=== PATIENT | male | born 1975 ===

== ENCOUNTER 2017-04-04 09:14 | Emergency (ER) | payer SELFPAY ==
[2017-04-04 09:20] VITALS: RESP 18; TEMP 98.1
--- NOTE | 2017-04-04 09:36 | C.PDOC ---
History Of Present Illness 41 y/o M p/w sore throat x 2 days. Denies fever. Feels that breathing is fine now but does note that breathing was difficult at times yesterday. Able to swallow but prefers to spit out saliva. Denies abdominal pain. Time Seen by Provider: 04/04/17 09:21 Chief Complaint (Nursing): ENT Problem Past Medical History Vital Signs: Last Vital Signs Temp 98.1 F 04/04/17 09:17 Pulse 90 04/04/17 09:17 Resp 18 04/04/17 09:17 BP 133/77 04/04/17 09:17 Pulse Ox 99 04/04/17 09:17 - Medical History PMH: HTN Surgical History: Appendectomy Family History: States: No Known Family Hx - Social History Hx Alcohol Use: No Hx Substance Use: No - Immunization History Hx Tetanus Toxoid Vaccination: Yes Hx Influenza Vaccination: Yes Hx Pneumococcal Vaccination: No Review Of Systems Except As Marked, All Systems Reviewed And Found Negative. Constitutional: Negative for: Fever Respiratory: Negative for: Shortness of Breath Physical Exam - Physical Exam Appears: No Acute Distress Skin: Normal Color Head: Normacephalic Eye(s): bilateral: EOMI Oral Mucosa: Moist Lips: Normal Appearing Throat: Erythema, Exudate, Other (Kissing tonsils) Neck: Normal ROM Lymphatic: Adenopathy (Tender bilaterally, cervical) Respiratory: No Accessory Muscle Use Gastrointestinal/Abdominal: Soft, No Tenderness, No Distention Neurological/Psych: Normal Speech, Normal Cognition Gait: Steady ED Course And Treatment O2 Sat by Pulse Oximetry: 99 Disposition - Disposition Disposition: HOME/ ROUTINE Disposition Time: 09:36 Condition: STABLE Prescriptions: Amoxicillin 875 mg PO BID #19 tablet Dexamethasone [Decadron] 10 mg PO ONCE #5 tab Ibuprofen [Motrin] 600 mg PO Q6 #25 tab Instructions: Tonsillitis (ED) - Clinical Impression Clinical Impression: Tonsillitis
[2017-04-04] MEDS ORDERED: Amoxicillin 250 mg/5 ml Susp (100 ml) ONE (09:43)
[2017-04-04 10:06] VITALS: BP 124/75; PULSE 78; O2SAT 98
== END 2017-04-04 10:06 | disposition home or self-care (01) ==
LOC: C.ER 09:14
DX: J03.90 Acute tonsillitis, unspecified (principal)
CPT/HCPCS: 96372; 99283; J1885; J8540

== ENCOUNTER 2017-06-19 15:36 | Emergency (ER) | payer OTHER ==
[2017-06-19] MEDS ORDERED: Penicillin G Benzathine 1.2 Mill Unit/2 ml Syr IM ONE ×2 (16:28→16:58)
--- NOTE | 2017-06-19 16:31 | C.PDOC ---
History Of Present Illness SORE THROAT, SWELLING SINCE YEST. SUBJ FEVER. NO OTHER ASSOC SX. EXAM NARD NONTOXIC HEENT +B/L TONSILAR SWELL UVULA MIDLINE, KISSING. NO DROOLING, STRIDOR. +L SUBMAND NODES MOBILE W LOCAL TEND NECK SUPPLE MDM PT REQUESTING PENICILLIN SHOT. PS CURRENT BP SIM TO PRIOR, NONCOMPLIANT W BP MEDS Time Seen by Provider: 06/19/17 16:08 Chief Complaint (Nursing): ENT Problem History Per: Patient History/Exam Limitations: no limitations Onset/Duration Of Symptoms: Days (1) Sick Contacts (Context): None Past Medical History Reviewed: Historical Data, Nursing Documentation, Vital Signs Vital Signs: Last Vital Signs Temp 97.9 F 06/19/17 17:03 Pulse 75 06/19/17 17:03 Resp 18 06/19/17 17:03 BP 170/100 H 06/19/17 17:03 Pulse Ox 98 06/19/17 17:03 - Medical History PMH: HTN Surgical History: Appendectomy Family History: States: No Known Family Hx - Social History Hx Alcohol Use: No Hx Substance Use: Yes - Immunization History Hx Tetanus Toxoid Vaccination: Yes Hx Influenza Vaccination: Yes Hx Pneumococcal Vaccination: No Review Of Systems Except As Marked, All Systems Reviewed And Found Negative. Constitutional: Positive for: Fever (Subjective) ENT: Positive for: Throat Pain (Sore throat), Throat Swelling Cardiovascular: Negative for: Chest Pain Respiratory: Negative for: Cough, Shortness of Breath Gastrointestinal: Negative for: Nausea, Vomiting Physical Exam - Physical Exam Appears: Non-toxic, No Acute Distress Skin: Warm, Dry Head: Atraumatic, Normacephalic Throat: No Drooling, Other ((+) Bilateral tonsilar swelling. Uvula midline, kissing. ) Neck: Normal, Normal ROM, Supple Lymphatic: Other ((+) Left submandibular nodes, mobile with local tenderness) Respiratory: Normal Breath Sounds, No Rales, No Rhonchi, No Stridor, No Wheezing Extremity: Normal ROM, No Swelling Neurological/Psych: Oriented x3, Normal Speech, Normal Motor ED Course And Treatment O2 Sat by Pulse Oximetry: 99 (RA) Pulse Ox Interpretation: Normal Medical Decision Making Medical Decision Making: PLAN: * Decadron IM * Toradol IM * Bicillin IM NOTE: Patient is requesting penicillin shot. Disposition Counseled Patient/Family Regarding: Diagnosis, Need For Followup - Disposition Referrals: YOUR,PMD [Other] Disposition: HOME/ ROUTINE Disposition Time: 16:30 Condition: IMPROVED Prescriptions: Ibuprofen [Motrin] 600 mg PO Q6 #30 tab Instructions: Pharyngitis (ED) Forms: [facility] (Amharic), Work Excuse - Clinical Impression Clinical Impression: Tonsillitis - Scribe Statement The provider has reviewed the documentation as recorded by the Summer Floyd Provider Attestation: All medical record entries made by the Summer were at my direction and personally dictated by me. I have reviewed the chart and agree that the record accurately reflects my personal performance of the history, physical exam, medical decision making, and the department course for this patient. I have also personally directed, reviewed, and agree with the discharge instructions and disposition.
[2017-06-19] MEDS ORDERED: Dexamethasone 4 mg/1 ml ONE (16:52)
[2017-06-19] MEDS ORDERED: Dexamethasone 4 mg/1 ml IM STA (17:01)
[2017-06-19 17:05] VITALS: BP 170/100; PULSE 75; RESP 18; TEMP 97.9
[2017-06-19 17:06] VITALS: O2SAT 99
== END 2017-06-19 17:07 | disposition home or self-care (01) ==
LOC: C.ER 15:36
DX: J03.90 Acute tonsillitis, unspecified (principal); I10 Essential (primary) hypertension
CPT/HCPCS: 96372; 99283; J0561; J1100; J1885

== ENCOUNTER 2017-08-09 09:40 | Observation (INO) | payer MEDICAID, OTHER ==
--- NOTE | 2017-08-09 09:43 | C.PDOC ---
History Of Present Illness LIMITED DUE TO CLIN COND 41-YEAR-OLD MALE, PRESENTS TO THE EMERGENCY DEPARTMENT WITH COMPLAINTS OF RECUR B/L TONSIL SWELLING, DIFFICULTY SWALLOWING SINCE LAST NIGHT. SEEN 03/2017 AND FOR SAME, S/P DEX AND BICILLIN. DENIES TONGUE, LIP SWELLING, SOB/WHEEZE OR OTHER SWELLING, RASH. NO FEVER. PREV DX HTN, NONCOMPLIANT W MEDS X 4 MONTHS DUE TO NO INSURANCE. ROS LIMITED EXAM MOD DIST NONTOXIC HEENT +MOD SEVERE B/L TONSILAR SWELL W SCANT EXUDATE, NONKISSING. UVULA MIDLINE. NO TONGUE OR LIP EDEMA; NO DROOLING/STRIDOR NECK SUPPLE +B/L SUBMAND NODES MILD TEND LUNGS CTA B/L NO W/R/R NO EDEMA NO HIVES, WARM DRY REMAINDER NEG Time Seen by Provider: 08/09/17 09:42 Chief Complaint (Nursing): ENT Problem Past Medical History Reviewed: Historical Data, Nursing Documentation, Vital Signs Vital Signs: Last Vital Signs Temp 98.6 F 08/09/17 09:43 Pulse 70 08/09/17 12:00 Resp 16 08/09/17 12:00 BP 170/116 H 08/09/17 12:00 Pulse Ox 98 08/09/17 12:00 - Medical History PMH: HTN Surgical History: Appendectomy Family History: States: No Known Family Hx - Social History Hx Alcohol Use: No Hx Substance Use: Yes - Immunization History Hx Tetanus Toxoid Vaccination: Yes Hx Influenza Vaccination: Yes Hx Pneumococcal Vaccination: No Review Of Systems Review Of Systems: ROS cannot be obtained secondary to pt's inabilty to answer questions. ENT: Positive for: Other (Tonsillar swelling and diff swallowing) Physical Exam - Physical Exam Appears: Non-toxic, No Acute Distress Skin: Normal Color, Warm, Dry, No Rash Head: Normacephalic Oral Mucosa: Other Throat: Other (+MOD SEVERE B/L TONSILAR SWELL W SCANT EXUDATE, NONKISSING. UVULA MIDLINE. NO TONGUE OR LIP EDEMA; NO DROOLING/STRIDOR) Neck: Normal ROM, Trachea Midline, Supple, Other (+B/L SUBMAND NODES MILD TEND) Chest: Symmetrical Cardiovascular: Rhythm Regular, No Murmur Respiratory: Normal Breath Sounds, No Accessory Muscle Use, No Rales, No Rhonchi , No Wheezing Extremity: Normal ROM, No Pedal Edema, No Deformity, No Swelling Neurological/Psych: Oriented x3, Normal Speech ED Course And Treatment - Laboratory Results Result Diagrams: 08/09/17 10:04 08/09/17 10:04 Progress - Re-Evaluation Re-evaluation Note: 08/09/17 11:43 ACTIVE SPITTING, NARD VSS. CT REPORT REVIEWED. PT CO PERSIST PAIN BUT IMPROVED FROM INITIAL. EXAM PERSIST TONSILAR SWELLING NO STRIDOR ACTIVE DROOLING. 08/09/17 12:03 D/W DR [facility]: RECOMMENDS ZOSYN, MONOSPOT, DEXAMETHASONE 10 MG Q8 X 2 DOSES 1ST DOSE IN 12 HOURS, ADMIT TO MEDICINE 08/09/17 12:17 DR EATON AWARE OF ER FINDINGS WILL ADMIT - Data Reviewed Data Reviewed: Lab, Diagnostic imaging, Old records - Critical Care Citical Care: Excluding Proc Time Critical Care Time: 120 minutes - Continuity of Care Discussed patient case with:: Covering for PMD Discussed pt. case with it consultant/specialty: Otolaryngology Disposition Counseled Patient/Family Regarding: Studies Performed, Diagnosis - Disposition Disposition: HOSPITALIZED Disposition Time: 12:18 Condition: STABLE Forms: [employer] (Romanian) - POA Present On Arrival: None - Clinical Impression Clinical Impression: Tonsillitis, Difficulty swallowing - Scribe Statement The provider has reviewed the documentation as recorded by the Scribe (Cynthia Hoang) All medical record entries made by the Scribe were at my direction and personally dictated by me. I have reviewed the chart and agree that the record accurately reflects my personal performance of the history, physical exam, medical decision making, and the department course for this patient. I have also personally directed, reviewed, and agree with the discharge instructions and disposition. Decision To Admit - Pt Status Changed To: Hospital Disposition Of: Observation - . Bed Request Type: Regular Admitting Physician: Gertrude Eaton Patient Diagnosis: Tonsillitis, Difficulty swallowing
[2017-08-09] MEDS ORDERED: Sodium Chloride 0.9% 1,000 ML IV ONE (09:44)
[2017-08-09] MEDS ORDERED: MethylPREDNISolone 40 mg Vial IVP STA (09:47)
[2017-08-09] MEDS ORDERED: MethylPREDNISolone 40 mg Vial ONE (09:57)
[2017-08-09 10:12] LABS: BASO % 0.4 % (0.0-2.0); EOS # 0.1 K/uL (0.0-0.7); EOS % 1.2 % (0.0-4.0); HEMOGLOBIN 13.3 g/dL (12.0-18.0); LYMPH # 2.7 K/uL (1.0-4.3); LYMPH % 22.4 % (20.0-40.0); MEAN CELL VOLUME 76.5 fL (80.0-94.0); MEAN CORPUSCULAR HEMOGLOBIN 25.5 pg (27.0-31.0); MEAN CORPUSCULAR HGB CONC 33.4 g/dL (33.0-37.0); MEAN PLATELET VOLUME 8.9 fL (7.2-11.7); MONO # 1.3 K/uL (0.0-0.8); MONO % 10.6 % (0.0-10.0); NEUT % 65.4 % (50.0-75.0); RBC 5.22 Mil/uL (4.40-5.90); RED CELL DISTRIBUTION WIDTH 13.5 % (11.5-14.5); WHITE BLOOD COUNT 12.2 K/uL (4.8-10.8)
[2017-08-09 10:27] LABS: CALCIUM 9.4 mg/dl (8.6-10.4); GFR AFRICAN-AMERICAN > 60; GFR NON-AFRICAN AMERICAN > 60
[2017-08-09 10:34] LABS: BLOOD UREA NITROGEN 12 mg/dL (9-20)
[2017-08-09] MEDS ORDERED: Iodixanol 320 MG/ML 100 ML BOTTLE IV ONE (10:41)
--- NOTE | 2017-08-09 11:36 | CT ---
PROCEDURE: CT NECK WITH CONTRAST HISTORY: TONSILAR SWELLING R/O ABSCESS COMPARISON: None TECHNIQUE: CT of the neck with intravenous contrast. Coronal and sagittal reformats generated. Intravenous contrast dose: 100 mL Visipaque 320 Radiation dose: DLP 455.11 mGy-cm This CT exam was performed using one or more of the following dose reduction techniques: Automated exposure control, adjustment of the mA and/or kV according to patient size, and/or use of iterative reconstruction technique. FINDINGS: NASOPHARYNX: Mild thickening at the posterior nasopharynx is noted without evidence of discrete mass. SUPRAHYOID NECK: There is moderate enlargement of the palatine tonsil without evidence of abscess formation which resulting in [id number] narrowing of the upper airway. Otherwise unremarkable oropharynx, oral cavity, parapharyngeal space and retropharyngeal space. INFRAHYOID NECK: Unremarkable larynx, hypopharynx, and supraglottic space. Vocal cords intact. MASS: None. GLANDS: Parotid and submandibular glands unremarkable. Mild diffuse enlargement of the thyroid gland is noted. LYMPH NODES: Diffuse mild enlargement of the lymph nodes at the mid to upper neck noted. CERVICAL SPINE: No fracture or focal lesion. VASCULAR STRUCTURES: Unremarkable. OTHER FINDINGS: None. IMPRESSION: Moderate enlargement of the palatine tonsils without evidence of abscess formation. Mild enlargement of the mid and upper neck lymph nodes. Mild to moderate diffuse enlargement of the thyroid gland. Correlate clinically for hyperthyroidism.
[2017-08-09] MEDS ORDERED: Piperacillin/Tazobact 3.375 gm 100 ML IV STA (12:20)
[2017-08-09] MEDS ORDERED: Piperacill/Tazo 3.375gm in Dex 3.375 GM/50 ML BAG IVPB STA (12:35)
[2017-08-09] MEDS ORDERED: Sodium Chloride 0.9% 1,000 ML IV SCH (13:15)
--- NOTE | 2017-08-09 13:32 | CP.PCM.HP ---
<DamiánBarbara - Last Filed: 08/09/17 13:11> History of Present Illness - History of Present Illness History of Present Illness: Patient is a 41 year old male with PMH of hyperthyroidism and HTN who presents to the ED with swollen tonsils, sore throat, and dysphagia since last night. Patient has been here in 03/2017 and 05/2017 with the same presentation. Patient said he noticed white tonsillar exudates which he tried to scrape off with a toothbrush last night which caused bleeding. Patient denies taking any medications for this since it started. He admits to associated submandibular lymphadenopathy. He denies fever, chills, headache, dizziness, changes in vision /hearing, nasal congestion, sinus pain/pressure, cough, chest pain, SOB, wheezing, stridor, abdominal pain, N&V, diarrhea, constipation, dysuria, calf pain, and lower extremity swelling. Denies sick contacts and recent travel, although patient just moved here 3-4 months ago from [place]. PMD: none (new to [facility]) PMH: hyperthyroidism, HTN Meds: Methimazole 10 mg QD (noncompliant) Allergies: NKDA PSH: appendectomy FH: denies SH: smokes marjuana (1 blunt daily), denies other drugs/tobacco/alcohol Present on Admission - Present on Admission Any Indicators Present on Admission: No Review of Systems - Review of Systems All systems: reviewed and no additional remarkable complaints except (as per HPI ) Past Patient History - Past Social History Smoking Status: Never Smoked - CARDIAC Hx Hypertension: Yes - PSYCHIATRIC Hx Substance Use: Yes - SURGICAL HISTORY Hx Appendectomy: Yes - ANESTHESIA Hx Anesthesia: Yes Hx Anesthesia Reactions: No Meds Allergies/Adverse Reactions: Allergies Allergy/AdvReac Type Severity Reaction Status Date / Time No Known Allergies Allergy Verified 08/09/17 09:46 Physical Exam - Constitutional Appears: Non-toxic, No Acute Distress - Head Exam Head Exam: ATRAUMATIC, NORMAL INSPECTION, NORMOCEPHALIC - Eye Exam Eye Exam: EOMI, Normal appearance, PERRL - ENT Exam ENT Exam: Mucous Membranes Moist Additional comments: Grade 4 tonsilar swelling with white exudates bilaterally - Neck Exam Neck exam: Positive for: Lymphadenopathy (submandibular ), Tenderness ( submandibular ) - Respiratory Exam Respiratory Exam: Clear to Auscultation Bilateral, NORMAL BREATHING PATTERN. absent: Accessory Muscle Use, Rales, Rhonchi, Wheezes, Respiratory Distress, Stridor - Cardiovascular Exam Cardiovascular Exam: RRR, +S1, +S2. absent: Bradycardia, Tachycardia, Diastolic murmur, Gallop, Rubs, Systolic Murmur - GI/Abdominal Exam GI & Abdominal Exam: Normal Bowel Sounds, Soft. absent: Distended, Tenderness - Extremities Exam Extremities exam: Positive for: normal inspection. Negative for: calf tenderness, pedal edema - Back Exam Back exam: NORMAL INSPECTION. absent: rash noted - Neurological Exam Neurological exam: Alert, Oriented x3 - Psychiatric Exam Psychiatric exam: Normal Affect, Normal Mood - Skin Skin Exam: Dry, Intact, Normal Color, Warm Results - Vital Signs Recent Vital Signs: Last Vital Signs Temp 98.6 F 08/09/17 09:43 Pulse 78 08/09/17 13:02 Resp 16 08/09/17 13:02 BP 157/72 H 08/09/17 13:02 Pulse Ox 98 08/09/17 13:02 - Labs Result Diagrams: 08/09/17 10:04 08/09/17 10:04 Labs: Laboratory Results - last 24 hr 08/09/17 08/09/17 08/09/17 09:46 10:04 10:04 WBC 12.2 H RBC 5.22 Hgb 13.3 Hct 39.9 MCV 76.5 L MCH 25.5 L MCHC 33.4 RDW 13.5 Plt Count 208 MPV 8.9 Neut % (Auto) 65.4 Lymph % (Auto) 22.4 [place] % (Auto) 10.6 H Eos % (Auto) 1.2 Baso % (Auto) 0.4 Neut # (Auto) 8.0 H Lymph # (Auto) 2.7 [place] # (Auto) 1.3 H Eos # (Auto) 0.1 Baso # (Auto) 0.0 Sodium 136 Potassium 4.4 Chloride 100 Carbon Dioxide 26 Anion Gap 14 BUN 12 Creatinine 0.5 L Est GFR ( Amer) > 60 Est GFR (Non-Af Amer) > 60 Random Glucose 102 Calcium 9.4 Grp A Beta Strep Ag Negative Blood Type Antibody Screen 08/09/17 10:04 WBC RBC Hgb Hct MCV MCH MCHC RDW Plt Count MPV Neut % (Auto) Lymph % (Auto) [place] % (Auto) Eos % (Auto) Baso % (Auto) Neut # (Auto) Lymph # (Auto) [place] # (Auto) Eos # (Auto) Baso # (Auto) Sodium Potassium Chloride Carbon Dioxide Anion Gap BUN Creatinine Est GFR ( Amer) Est GFR (Non-Af Amer) Random Glucose Calcium Grp A Beta Strep Ag Blood Type A POSITIVE Antibody Screen Negative Assessment & Plan (1) Tonsillitis Assessment and Plan: * ENT, Dr. Patel, consulted - help appreciated * Afebrile * Leukocytosis 12.2 * Rapid strep negative * [place] spot pending * throat culture pending * CT Neck: No abscess, moderately enlarged tonsils, mildly enlarged mid/upper neck lymph nodes, mild to moderate enlargement of the thyroid * Given fluids, zosyn, toradol, and solumedrol 80 mg in the ED * Swallow eval * CLD for now * Ceftriaxone 1 g QD * Solu-medrol 40 mg Q8H * Toradol Q6 PRN pain Status: Acute (2) Hyperthyroidism Assessment and Plan: * f/u thyroid studies * hold home methimazole until thyroid studies resulted Status: Chronic (3) Hypertension Assessment and Plan: * BP 226/125 on arrival but coming down without intervention * will monitor and add BP meds if needed Status: Chronic (4) Prophylactic measure Assessment and Plan: * GI: not indicated * DVT: SCDs Status: Acute <Gertrude Eaton - Last Filed: 08/09/17 14:41> Results - Vital Signs Recent Vital Signs: Last Vital Signs Temp 98.6 F 08/09/17 09:43 Pulse 86 08/09/17 13:25 Resp 16 08/09/17 13:25 BP 155/71 H 08/09/17 13:25 Pulse Ox 98 08/09/17 13:25 - Labs Result Diagrams: 08/09/17 10:04 08/09/17 10:04 Labs: Laboratory Results - last 24 hr 08/09/17 08/09/17 08/09/17 09:46 10:04 10:04 WBC 12.2 H RBC 5.22 Hgb 13.3 Hct 39.9 MCV 76.5 L MCH 25.5 L MCHC 33.4 RDW 13.5 Plt Count 208 MPV 8.9 Neut % (Auto) 65.4 Lymph % (Auto) 22.4 [place] % (Auto) 10.6 H Eos % (Auto) 1.2 Baso % (Auto) 0.4 Neut # (Auto) 8.0 H Lymph # (Auto) 2.7 [place] # (Auto) 1.3 H Eos # (Auto) 0.1 Baso # (Auto) 0.0 Sodium 136 Potassium 4.4 Chloride 100 Carbon Dioxide 26 Anion Gap 14 BUN 12 Creatinine 0.5 L Est GFR ( Amer) > 60 Est GFR (Non-Af Amer) > 60 Random Glucose 102 Calcium 9.4 Grp A Beta Strep Ag Negative Blood Type Antibody Screen 08/09/17 10:04 WBC RBC Hgb Hct MCV MCH MCHC RDW Plt Count MPV Neut % (Auto) Lymph % (Auto) [place] % (Auto) Eos % (Auto) Baso % (Auto) Neut # (Auto) Lymph # (Auto) [place] # (Auto) Eos # (Auto) Baso # (Auto) Sodium Potassium Chloride Carbon Dioxide Anion Gap BUN Creatinine Est GFR ( Amer) Est GFR (Non-Af Amer) Random Glucose Calcium Grp A Beta Strep Ag Blood Type A POSITIVE Antibody Screen Negative Attending/Attestation - Attestation I have personally seen and examined this patient.: Yes I have fully participated in the care of the patient.: Yes I have reviewed all pertinent clinical information: Yes Notes (Text): Seen and examined patient has throat pain,difficulty in swallowing,no fever,has hoarseness of voice on examination he has swollen tonsils. no stridor,no drooling,voice hoarseness and dysphagia.CT shows no abscess. has mild leukocytosis,no fever. recurrent tonsillitis H/o Hyperthyroidism and hypertension. Noncompliance with meds. He is not tachycardic,his Blood pressure is coming down We will do TSH and resume meds if he is hyperthyroid ER physician spoke to ENT surgeon who recommend admit for observation ,IV steroid and antibiotics we will give cler liquids as tolerated,clindamycin and solumedrol Request ENT consult Plan discussed with the patient 08/09/17 14:36
[2017-08-09] MEDS ORDERED: MethylPREDNISolone 40 mg Vial IVP SCH (14:00)
[2017-08-09] MEDS: Clindamycin 600mg/50ml D5W 600 MG/50 ML VIAL IVPB SCH ×2 (14:20→20:57)
[2017-08-09 15:30] LABS: T3 9.42 nmol/L (1.49-2.60); T4 > 24.9 ug/dL (5.5-11.0)
[2017-08-09] MEDS: Sodium Chloride 0.9% 1,000 ML IV SCH (17:33)
[2017-08-09] MEDS: MethylPREDNISolone 40 mg Vial IVP SCH ×2 (20:58→22:53)
[2017-08-09] MEDS: Clindamycin 600mg/50ml NS 600 MG/50 ML BAG IVPB SCH (21:07)
[2017-08-10] MEDS: Sodium Chloride 0.9% 1,000 ML IV SCH (01:59)
[2017-08-10] MEDS: Clindamycin 600mg/50ml NS 600 MG/50 ML BAG IVPB SCH ×4 (04:10→21:45)
[2017-08-10] MEDS: MethylPREDNISolone 40 mg Vial IVP SCH (05:22)
[2017-08-10 08:34] LABS: BASO % 0.1 % (0.0-2.0); HEMOGLOBIN 12.1 g/dL (12.0-18.0); LYMPH # 1.3 K/uL (1.0-4.3); LYMPH % 10.7 % (20.0-40.0); MEAN CELL VOLUME 75.8 fL (80.0-94.0); MEAN CORPUSCULAR HEMOGLOBIN 25.8 pg (27.0-31.0); MEAN PLATELET VOLUME 8.5 fL (7.2-11.7); MONO # 0.3 K/uL (0.0-0.8); MONO % 2.4 % (0.0-10.0); NEUT # 10.5 K/uL (1.8-7.0); NEUT % 86.8 % (50.0-75.0); NRBC % 0.1 % (0.0-2.0); RBC 4.68 Mil/uL (4.40-5.90); RED CELL DISTRIBUTION WIDTH 13.1 % (11.5-14.5); WHITE BLOOD COUNT 12.1 K/uL (4.8-10.8)
[2017-08-10 09:18] LABS: ALB/GLOB RATIO 0.8 (1.0-2.1); ALBUMIN 3.2 g/dL (3.5-5.0); ALT/SGPT 62 U/L (21-72); AST/SGOT 38 U/L (17-59); BLOOD UREA NITROGEN 13 mg/dL (9-20); GFR AFRICAN-AMERICAN > 60; GFR NON-AFRICAN AMERICAN > 60
--- NOTE | 2017-08-10 09:37 | CP.PCM.PN ---
Subjective - Date & Time of Evaluation Date of Evaluation: 08/10/17 Time of Evaluation: 09:00 - Subjective Subjective: Seen and examined,Throat swelling is improving, no complain,denies palpitation He was on Methimazole. noncompliance with this meds His blood pressure is high no fever,no stridor Objective - Vital Signs/Intake and Output Vital Signs (last 24 hours): Temp Pulse Resp BP Pulse Ox 98 F 96 H 18 172/83 H 96 08/10/17 01:16 08/10/17 01:16 08/10/17 01:16 08/10/17 01:16 08/10/17 01:16 Intake and Output: 08/10/17 08/10/17 06:59 18:59 Intake Total 600 Balance 600 - Medications Medications: Current Medications Acetaminophen (Tylenol 325mg Tab) 650 mg PO Q6 PRN PRN Reason: Fever >100.4 F Atenolol (Tenormin) 25 mg PO DAILY [facility] Clindamycin Phosphate (Cleocin In Normal Saline) 600 mg in 50 mls @ 100 mls/hr IVPB Q6H DULCE MARIA Last Admin: 08/10/17 04:10 Dose: 100 mls/hr Ketorolac Tromethamine (Toradol) 30 mg IVP Q6 PRN PRN Reason: Pain, moderate (4-7) Methimazole (Tapazole) 10 mg PO DAILY DULCE MARIA - Labs Labs: 08/10/17 08:24 08/10/17 08:24 - Constitutional Appears: Non-toxic - Head Exam Head Exam: NORMAL INSPECTION - Eye Exam Eye Exam: Normal appearance - ENT Exam ENT Exam: absent: Normal Exam, Normal Oropharynx (swollen tonsils) - Neck Exam Neck Exam: Full ROM - Respiratory Exam Respiratory Exam: Clear to Ausculation Bilateral - Cardiovascular Exam Cardiovascular Exam: REGULAR RHYTHM - GI/Abdominal Exam GI & Abdominal Exam: Soft - Extremities Exam Extremities Exam: Full ROM - Back Exam Back Exam: NORMAL INSPECTION - Neurological Exam Neurological Exam: Awake, Oriented x3 - Psychiatric Exam Psychiatric exam: Normal Mood - Skin Skin Exam: Intact Assessment and Plan - Assessment and Plan (Free Text) Assessment: 41years old male with history of hyperthyroidism and hypertension came for throat pain,Tonsillitis and difficulty in swallowing. He is noncompliance with meds,moved from [place],no primary care physician and has no insurance. patient feels better today. His tonsils are swollen. His Free T4 and total T4 is very high,has tachycardia and hypertensive. Discussed with Dr wisdom this morning. She is planning to increase his methimazole. She recommend propronol XL on discharge because its cheap. Plan: 1. Tonsillitis/dysphagia Continue antibiotics Diet as tolerated Follow ENT 2. Hyperthyroidism /Tachycardia and hypertension High free T4 and Total T4 Started on methomazole and atenolol Patient need to follow medical clinic Discussed with the patient D/W Dr Wisdom .She is going to see him soon. Methimazole is expensive. Needs assistance.SW referral Dr Wisdom recommend to d/c home on Propranol XL which is less expensive follow lab reports ordered. Monitor blood pressure 3.DVT and GI prophylaxis
[2017-08-10 10:54] VITALS: RESP 20
[2017-08-10 17:21] VITALS: O2SAT 97
--- NOTE | 2017-08-11 02:33 | CON ---
DATE: ENDOCRINOLOGY CONSULTATION LOCATION: Room 564. HISTORY OF PRESENT ILLNESS: This is a 41-year-old male with known longstanding history of hyperthyroidism admitted here with mild generalized body weakness and dizziness and light headedness with severe neck pain and odynophagia and has been diagnosed of acute tonsillopharyngitis with IV antibiotics management ongoing at this time. He has radha referred now also for evaluation of overt hyperthyroidism as noted. PAST MEDICAL HISTORY: As mentioned above, admits to having longstanding history of hyperthyroidism, but because of financial constraints and lack of medical insurance, he stopped his medications as given on the outpatient. History of hypertension and dyslipidemia. FAMILY HISTORY: Positive for hypertension and heart disease. No known thyroid endocrinopathy SOCIAL HISTORY: Patient admits to smoking marijuana but denies any other substance use. He has a supportive family otherwise. REVIEW OF SYSTEMS: As mentioned above, admits to generalized body weakness with easy fatigability and tiredness and suboptimal energy level. Also admits to episodic bifrontal headaches and marked insomnia, especially again worse in the last month or so prior to admission. Admits to occasional precordial chest pain with palpitations especially noted on exertion with occasional bouts of shortness of breath. His oral intake has been variable with nausea, dyspepsia, and vague upper abdominal pains. Also admits to hyperdefecation and recent weight loss. PHYSICAL EXAMINATION GENERAL: This is an average-built male in no apparent distress. VITAL SIGNS: Blood pressure of 140/80, pulse of 100 beats per minute and regular, temperature 99, respirations 20. Height is 5 feet 7 inches, weight is 240 pounds. HEENT: Head normocephalic. Eyes anicteric with pink conjunctivae. Funduscopy not possible at this time. Ears, nose, and throat otherwise normal. NECK: Supple. Thyroid gland shows diffuse thyromegaly, which is firm and nontender, with positive thyroid bruits noted. CARDIOPULMONARY: Adynamic precordium. S1, S2 is rapid and regular. LUNGS: Clear to auscultation. ABDOMEN: Flat, soft with positive bowel sounds. EXTREMITIES: No peripheral edema. Pulses are +2 bilaterally. LABORATORY DATA: The total T4 or thyroxin levels is over 24.9 with a free T4 of greater than 6.99 and a total T3 of 9.42 with a TSH of less than 0.02. His chemistry showed a BUN of 13, sodium 137, potassium 4.1, chloride 105, CO2 23, glucose 148, and creatinine 0.4. ASSESSMENT: This is a 41-year-old male with overt thyrotoxicosis presenting here with marked hyperthyroidism both historically, clinically and biochemically and related to drug omission because of financial constraints as noted thereof. He also has a diffuse toxic goiter with no overt compressive or obstructive manifestations. He most likely has Graves' disease with underlying thyroid autoimmunity, but no overt orbitopathy as noted. PLAN OF MANAGEMENT: As discussed with the patient and the hospitalist, we will initiate high-dose medical therapy inpatient to optimize his metabolic control. However because of financial constraints, we will recommend that he be discharged on a lower dose of Tapazole given at least a mg p.o. b.i.d. after meals as ordered. For now we will maximize his medical therapy and give him a stat dose of Tapazole at 20 mg now to be followed by Tapazole given as 20 mg p.o. t.i.d. after meals as a supra-pharmacological dosing to override the increased hyperadrenergic manifestations of hyperthyroidism. We will obtain a thyroid stimulating immunoglobulin and a thyroid peroxidase antibody to confirm and/or indicate the presence of underlying thyroid autoimmunity. We will follow him and advise accordingly. Caty Vanessa MD
[2017-08-11] MEDS: Clindamycin 600mg/50ml NS 600 MG/50 ML BAG IVPB SCH ×3 (05:13→14:43)
[2017-08-11 07:34] VITALS: BP 162/67; PULSE 74; TEMP 97.9
[2017-08-11 08:11] LABS: EOS % 0.2 % (0.0-4.0); HEMOGLOBIN 11.8 g/dL (12.0-18.0); LYMPH # 4.6 K/uL (1.0-4.3); LYMPH % 29.7 % (20.0-40.0); MEAN CELL VOLUME 76.1 fL (80.0-94.0); MEAN CORPUSCULAR HGB CONC 34.1 g/dL (33.0-37.0); MEAN PLATELET VOLUME 8.6 fL (7.2-11.7); MONO # 1.4 K/uL (0.0-0.8); MONO % 8.9 % (0.0-10.0); NEUT # 9.5 K/uL (1.8-7.0); NEUT % 61.2 % (50.0-75.0); NRBC % 0.1 % (0.0-2.0); RBC 4.53 Mil/uL (4.40-5.90); RED CELL DISTRIBUTION WIDTH 13.5 % (11.5-14.5); WHITE BLOOD COUNT 15.5 K/uL (4.8-10.8)
[2017-08-11 08:15] LABS: ALB/GLOB RATIO 0.9 (1.0-2.1); ALBUMIN 3.2 g/dL (3.5-5.0); ALT/SGPT 64 U/L (21-72); AST/SGOT 41 U/L (17-59); BLOOD UREA NITROGEN 17 mg/dL (9-20); CALCIUM 8.4 mg/dl (8.6-10.4); GFR AFRICAN-AMERICAN > 60; GFR NON-AFRICAN AMERICAN > 60; HDL CHOLESTEROL 28 mg/dL (30-70)
[2017-08-11 08:24] LABS: LDL CHOLESTEROL 50 mg/dL (0-129)
[2017-08-11 08:40] LABS: T4 > 24.9 ug/dL (5.5-11.0)
[2017-08-11] MEDS ORDERED: Pneumococcal 23-Valent Vaccine IM ONE (10:00)
[2017-08-11] MEDS ORDERED: Enoxaparin 40 mg Syringe SC SCH (10:00)
[2017-08-11] MEDS ORDERED: Influenza Vaccine 60 mcg/0.5 mL SYR (4YR UP) IM ONE (10:00)
--- NOTE | 2017-08-11 14:57 | CP.PCM.DIS ---
<Barbara Steel - Last Filed: 08/11/17 14:59> Provider - Provider Date of Admission: 08/09/17 12:21 Attending physician: Gertrude Eaton MD Consults: Dr. Otf Patel Time Spent in preparation of Discharge (in minutes): 35 Diagnosis - Discharge Diagnosis (1) Tonsillitis Status: Acute (2) Hyperthyroidism Status: Chronic (3) Hypertension Status: Chronic (4) Prophylactic measure Status: Acute Hospital Course - Lab Results Lab Results: Micro Results 08/09/17 09:46 Throat Group A Strep Throat Culture - Final Streptococcus Pyogenes Grp A Most Recent Lab Values WBC 15.5 K/uL (4.8-10.8) H 08/11/17 07:45 RBC 4.53 Mil/uL (4.40-5.90) 08/11/17 07:45 Hgb 11.8 g/dL (12.0-18.0) L 08/11/17 07:45 Hct 34.5 % (35.0-51.0) L 08/11/17 07:45 MCV 76.1 fL (80.0-94.0) L 08/11/17 07:45 MCH 26.0 pg (27.0-31.0) L 08/11/17 07:45 MCHC 34.1 g/dL (33.0-37.0) 08/11/17 07:45 RDW 13.5 % (11.5-14.5) 08/11/17 07:45 Plt Count 187 K/uL (130-400) 08/11/17 07:45 MPV 8.6 fL (7.2-11.7) 08/11/17 07:45 Neut % (Auto) 61.2 % (50.0-75.0) 08/11/17 07:45 Lymph % (Auto) 29.7 % (20.0-40.0) 08/11/17 07:45 [place] % (Auto) 8.9 % (0.0-10.0) 08/11/17 07:45 Eos % (Auto) 0.2 % (0.0-4.0) 08/11/17 07:45 Baso % (Auto) 0.0 % (0.0-2.0) 08/11/17 07:45 Neut # (Auto) 9.5 K/uL (1.8-7.0) H 08/11/17 07:45 Lymph # (Auto) 4.6 K/uL (1.0-4.3) H 08/11/17 07:45 [place] # (Auto) 1.4 K/uL (0.0-0.8) H 08/11/17 07:45 Eos # (Auto) 0.0 K/uL (0.0-0.7) 08/11/17 07:45 Baso # (Auto) 0.0 K/uL (0.0-0.2) 08/11/17 07:45 Sodium 139 mmol/L (132-148) 08/11/17 07:45 Potassium 4.0 mmol/L (3.6-5.2) 08/11/17 07:45 Chloride 106 mmol/L (98-107) 08/11/17 07:45 Carbon Dioxide 25 mmol/L (22-30) 08/11/17 07:45 Anion Gap 12 (10-20) 08/11/17 07:45 BUN 17 mg/dL (9-20) 08/11/17 07:45 Creatinine 0.5 mg/dL (0.8-1.5) L 08/11/17 07:45 Est GFR ( Amer) > 60 08/11/17 07:45 Est GFR (Non-Af Amer) > 60 08/11/17 07:45 Random Glucose 105 mg/dL (75-110) 08/11/17 07:45 Hemoglobin A1c 5.6 % (4.2-6.5) 08/11/17 07:45 Calcium 8.4 mg/dl (8.6-10.4) L 08/11/17 07:45 Total Bilirubin 0.4 mg/dL (0.2-1.3) 08/11/17 07:45 AST 41 U/L (17-59) 08/11/17 07:45 ALT 64 U/L (21-72) 08/11/17 07:45 Alkaline Phosphatase 78 U/L (38-126) 08/11/17 07:45 Total Protein 6.9 g/dL (6.3-8.3) 08/11/17 07:45 Albumin 3.2 g/dL (3.5-5.0) L 08/11/17 07:45 Globulin 3.6 gm/dL (2.2-3.9) 08/11/17 07:45 Albumin/Globulin Ratio 0.9 (1.0-2.1) L 08/11/17 07:45 Triglycerides 39 mg/dL (0-149) 08/11/17 07:45 Cholesterol 92 mg/dL (0-199) 08/11/17 07:45 LDL Cholesterol Direct 50 mg/dL (0-129) 08/11/17 07:45 HDL Cholesterol 28 mg/dL (30-70) L 08/11/17 07:45 Free T4 5.50 ng/dL (0.78-2.19) H 08/11/17 07:45 Thyroxine (T4) > 24.9 ug/dL (5.5-11.0) H 08/11/17 07:45 Total T3 9.42 nmol/L (1.49-2.60) H 08/09/17 14:19 TSH 3rd Generation < 0.02 mIU/L (0.46-4.68) L 08/11/17 07:45 Infectious [place] Assay Negative (NEGATIVE) 08/09/17 13:40 Grp A Beta Strep Ag Negative (NEGATIVE) 08/09/17 09:46 Blood Type A POSITIVE 08/09/17 10:04 Antibody Screen Negative 08/09/17 10:04 - Hospital Course Hospital Course: Upon admission: Patient is a 41 year old male with PMH of hyperthyroidism and HTN who presents to the ED with swollen tonsils, sore throat, and dysphagia since last night. Patient has been here in 03/2017 and 05/2017 with the same presentation. Patient said he noticed white tonsillar exudates which he tried to scrape off with a toothbrush last night which caused bleeding. Patient denies taking any medications for this since it started. He admits to associated submandibular lymphadenopathy. He denies fever, chills, headache, dizziness, changes in vision /hearing, nasal congestion, sinus pain/pressure, cough, chest pain, SOB, wheezing, stridor, abdominal pain, N&V, diarrhea, constipation, dysuria, calf pain, and lower extremity swelling. Denies sick contacts and recent travel, although patient just moved here 3-4 months ago from [place]. Hospital course: Patient was admitted with tonsilitis. ENT, Dr. Patel was consulted and planned for f/u as outpatient once tonsilitis resolved to have tonsilectomy. Patient was found to have throat cultures positive for group A strep pyogenes. He was started on steroids and ceftriaxone originally but switched to clindamycin. CT neck done in the ED showed No abscess, moderately enlarged tonsils, mildly enlarged mid/upper neck lymph nodes, mild to moderate enlargement of the thyroid. Dr. Vanessa was consulted for hyperthyroidism. She started the patient on methimazole 20 mg BID and atenolol. Upon discharge: Patient clear for discharge per Dr. Bañuelos and Dr. Vanessa, with instruction to follow up in the [facility] and how to take his new medications. Please note that this is a summary of events. For more details, please see complete medical record. Discharge Exam - Head Exam Head Exam: NORMAL INSPECTION - Eye Exam Eye Exam: EOMI - ENT Exam ENT Exam: Mucous Membranes Moist Additional comments: swollen tonsils L>R with some white exudates - Respiratory Exam Respiratory Exam: Clear to PA & Lateral, NORMAL BREATHING PATTERN, UNREMARKABLE - Cardiovascular Exam Cardiovascular Exam: RRR, +S1, +S2 - GI/Abdominal Exam GI & Abdominal Exam: Normal Bowel Sounds, Unremarkable - Extremities Exam Extremities exam: normal inspection - Neurological Exam Neurological exam: Alert, Oriented x3 - Psychiatric Exam Psychiatric exam: Normal Affect, Normal Mood - Skin Skin Exam: Dry, Intact, Normal Color, Warm Discharge Plan - Discharge Medications Prescriptions: Clindamycin [Cleocin] 300 mg PO TID #30 cap methIMAzole [Tapazole] 20 mg PO BID 30 Days tab Propranolol HCl [Propranolol HCl ER] 60 mg PO DAILY #30 cap.sa.24h - Follow Up Plan Condition: STABLE Disposition: HOME/ ROUTINE Instructions: Hyperthyroidism (Overactive Thyroid), High Blood Pressure in Adults, Clindamycin (Systemic), Low Salt Diet, Methimazole, Propranolol, Hypertension (DC), Hypertension (GEN) Additional Instructions: Please follow up with the [facility] clinic downstairs for monitoring of your thyroid hormone levels. Please start the following medications: Methimazole 20 mg by mouth 3x daily Propranolol LA 60 mg by mouth daily Clindamycin 300 mg by mouth 3x daily Please eat yogurt with active cultures or take a probiotic while in the antibiotic, but not within 2 hours of dose. Referrals: [facility] at [facility] [Outside] Raghu Patel MD [Staff Provider] - Caty Vanessa MD [Medical Doctor] - <George Bañuelos H - Last Filed: 08/11/17 15:32> Provider - Provider Date of Admission: 08/09/17 12:21 Attending physician: Gertrude Eaton MD Hospital Course - Lab Results Lab Results: Micro Results 08/09/17 09:46 Throat Group A Strep Throat Culture - Final Streptococcus Pyogenes Grp A Most Recent Lab Values WBC 15.5 K/uL (4.8-10.8) H 08/11/17 07:45 RBC 4.53 Mil/uL (4.40-5.90) 08/11/17 07:45 Hgb 11.8 g/dL (12.0-18.0) L 08/11/17 07:45 Hct 34.5 % (35.0-51.0) L 08/11/17 07:45 MCV 76.1 fL (80.0-94.0) L 08/11/17 07:45 MCH 26.0 pg (27.0-31.0) L 08/11/17 07:45 MCHC 34.1 g/dL (33.0-37.0) 08/11/17 07:45 RDW 13.5 % (11.5-14.5) 08/11/17 07:45 Plt Count 187 K/uL (130-400) 08/11/17 07:45 MPV 8.6 fL (7.2-11.7) 08/11/17 07:45 Neut % (Auto) 61.2 % (50.0-75.0) 08/11/17 07:45 Lymph % (Auto) 29.7 % (20.0-40.0) 08/11/17 07:45 [place] % (Auto) 8.9 % (0.0-10.0) 08/11/17 07:45 Eos % (Auto) 0.2 % (0.0-4.0) 08/11/17 07:45 Baso % (Auto) 0.0 % (0.0-2.0) 08/11/17 07:45 Neut # (Auto) 9.5 K/uL (1.8-7.0) H 08/11/17 07:45 Lymph # (Auto) 4.6 K/uL (1.0-4.3) H 08/11/17 07:45 [place] # (Auto) 1.4 K/uL (0.0-0.8) H 08/11/17 07:45 Eos # (Auto) 0.0 K/uL (0.0-0.7) 08/11/17 07:45 Baso # (Auto) 0.0 K/uL (0.0-0.2) 08/11/17 07:45 Sodium 139 mmol/L (132-148) 08/11/17 07:45 Potassium 4.0 mmol/L (3.6-5.2) 08/11/17 07:45 Chloride 106 mmol/L (98-107) 08/11/17 07:45 Carbon Dioxide 25 mmol/L (22-30) 08/11/17 07:45 Anion Gap 12 (10-20) 08/11/17 07:45 BUN 17 mg/dL (9-20) 08/11/17 07:45 Creatinine 0.5 mg/dL (0.8-1.5) L 08/11/17 07:45 Est GFR ( Amer) > 60 08/11/17 07:45 Est GFR (Non-Af Amer) > 60 08/11/17 07:45 Random Glucose 105 mg/dL (75-110) 08/11/17 07:45 Hemoglobin A1c 5.6 % (4.2-6.5) 08/11/17 07:45 Calcium 8.4 mg/dl (8.6-10.4) L 08/11/17 07:45 Total Bilirubin 0.4 mg/dL (0.2-1.3) 08/11/17 07:45 AST 41 U/L (17-59) 08/11/17 07:45 ALT 64 U/L (21-72) 08/11/17 07:45 Alkaline Phosphatase 78 U/L (38-126) 08/11/17 07:45 Total Protein 6.9 g/dL (6.3-8.3) 08/11/17 07:45 Albumin 3.2 g/dL (3.5-5.0) L 08/11/17 07:45 Globulin 3.6 gm/dL (2.2-3.9) 08/11/17 07:45 Albumin/Globulin Ratio 0.9 (1.0-2.1) L 08/11/17 07:45 Triglycerides 39 mg/dL (0-149) 08/11/17 07:45 Cholesterol 92 mg/dL (0-199) 08/11/17 07:45 LDL Cholesterol Direct 50 mg/dL (0-129) 08/11/17 07:45 HDL Cholesterol 28 mg/dL (30-70) L 08/11/17 07:45 Free T4 5.50 ng/dL (0.78-2.19) H 08/11/17 07:45 Thyroxine (T4) > 24.9 ug/dL (5.5-11.0) H 08/11/17 07:45 Total T3 9.42 nmol/L (1.49-2.60) H 08/09/17 14:19 TSH 3rd Generation < 0.02 mIU/L (0.46-4.68) L 08/11/17 07:45 Infectious [place] Assay Negative (NEGATIVE) 08/09/17 13:40 Grp A Beta Strep Ag Negative (NEGATIVE) 08/09/17 09:46 Blood Type A POSITIVE 08/09/17 10:04 Antibody Screen Negative 08/09/17 10:04 Attending/Attestation - Attestation I have personally seen and examined this patient.: Yes I have fully participated in the care of the patient.: Yes I have reviewed all pertinent clinical information, including history, physical exam and plan: Yes Notes (Text): 08/11/17 15:32 Medical attending: Patient was seen and examined by me, I saw the patient together with the medical assistant internal medicine and agree with the above note by the resident. At this time the patient reported feeling much improved since before. He is able to swallow easily as well as take food easily as well. He no longer has pain with palpation of his neck. He is denying fevers, denying chills. Since admission he's been on IV clindamycin as well as Decadron and then Solu-Medrol. He still had minimal exudates that I was able to see when shining a light in his throat. He explains that he understands that he'll need outpatient follow- up for his tonsils to get a tonsillectomy. Furthermore he's can be on medication with regards to his hyperthyroidism. He says that he is aware of his history of hyperthyroidism however he was not able to take his medications regularly Thank you very much, George Bañuelos
--- NOTE | 2017-08-11 22:42 | CARD ---
APPROVED REPORT EKG Measurement Heart [id number] <Conclusion> Normal sinus rhythm Incomplete right bundle branch block Moderate voltage criteria for LVH, may be normal variant Borderline ECG
--- NOTE | 2017-08-11 23:08 | PN ---
ENDOCRINOLOGY FOLLOWUP NOTE LOCATION: Room 564. SUBJECTIVE: This is a 41-year-old male with overt thyrotoxicosis and mild hyperthyroidism both historically, clinically, and biochemically, and is now being followed closely for metabolic management. His thyroid studies are still quite elevated as noted with the repeat total T4 of over 24.9 with a TSH of less than 0.02 and a free T4 of 5.50. Latest chemistries showed a BUN of 17, sodium 139, potassium 4.0, chloride 106, CO2 of 25, glucose 105, and creatinine 0.5. So at this time, we will continue the Tapazole given as 20 mg p.o. every 8 hours for inpatient management. However, he is being planned to go home. He is being planned for a discharge today as noted, and because of the financial constraints, we would recommend at least a modified dosing of his Tapazole 50 mg p.o. b.i.d. after meals as ordered. We will titrate incrementally as indicated to optimize metabolic control. His discharge today would recommend at least a compromise of Tapazole given as 20 mg b.i.d. after meals as ordered. Discussed the plan with the medical office rep as noted. We will follow with you. Caty Vanessa MD
== END 2017-08-11 16:43 | disposition home or self-care (01) ==
LOC: C.ER 09:40 → C.9E 12:21 → C.5S 22:18
PROVIDERS: ADMIT Internal Medicine; ATTEND Internal Medicine
DX: J03.90 Acute tonsillitis, unspecified (principal); Z91.14 Patient's other noncompliance with medication regimen; I10 Essential (primary) hypertension; E05.00 Thyrotoxicosis with diffuse goiter without thyrotoxic crisis or storm; R59.1 Generalized enlarged lymph nodes; F12.90 Cannabis use, unspecified, uncomplicated; E78.5 Hyperlipidemia, unspecified; B95.0 Streptococcus, group A, as the cause of diseases classified elsewhere; R00.0 Tachycardia, unspecified; Z23 Encounter for immunization
CPT/HCPCS: 36415; 70491; 80048; 80053; 80061; 83036; 84436; 84439; 84443; 84445; 84480; 85025; 86308; 86376; 86850; 86900; 87070; 87430; 90674; 90732; 92610; 93005; 96360; 96361; 96365; 96374; 99285; G0008; G0009; G0378; G8996; G8997; G8998; J0360; J1650; J1885; J2543; J2920; J7040; Q9967

== ENCOUNTER → 2017-08-12 11:25 | Emergency (ER) | payer MEDICAID, OTHER | END | disposition left against medical advice (07) | LOC: C.ER 11:25 | DX: Z02.89 Encounter for other administrative examinations (principal); R07.0 Pain in throat ==

== ENCOUNTER 2017-10-24 20:39 | Emergency (ER) | payer MEDICAID ==
[2017-10-24 20:58] VITALS: TEMP 97.7; O2SAT 99
[2017-10-24] MEDS ORDERED: Lactated Ringer's 1,000 ML IVB STA (21:18)
[2017-10-24 21:34] LABS: BASO % 0.4 % (0.0-2.0); EOS # 0.2 K/uL (0.0-0.7); EOS % 2.3 % (0.0-4.0); HEMOGLOBIN 12.8 g/dL (12.0-18.0); LYMPH # 3.9 K/uL (1.0-4.3); LYMPH % 39.6 % (20.0-40.0); MEAN CELL VOLUME 77.8 fL (80.0-94.0); MEAN CORPUSCULAR HGB CONC 33.4 g/dL (33.0-37.0); MEAN PLATELET VOLUME 8.5 fL (7.2-11.7); MONO # 1.2 K/uL (0.0-0.8); MONO % 12.3 % (0.0-10.0); NEUT # 4.5 K/uL (1.8-7.0); NEUT % 45.4 % (50.0-75.0); NRBC % 0.1 % (0.0-2.0); RBC 4.92 Mil/uL (4.40-5.90); RED CELL DISTRIBUTION WIDTH 14.5 % (11.5-14.5); WHITE BLOOD COUNT 9.9 K/uL (4.8-10.8)
[2017-10-24 21:49] LABS: ALB/GLOB RATIO 0.8 (1.0-2.1); ALBUMIN 3.3 g/dL (3.5-5.0); ALT/SGPT 89 U/L (21-72); AST/SGOT 95 U/L (17-59); BLOOD UREA NITROGEN 13 mg/dL (9-20); CALCIUM 8.6 mg/dl (8.6-10.4); GFR AFRICAN-AMERICAN > 60; GFR NON-AFRICAN AMERICAN > 60
[2017-10-24 22:11] LABS: FREE T4 5.31 ng/dL (0.78-2.19)
--- NOTE | 2017-10-24 22:53 | C.PDOC ---
Time Seen by Provider: 10/24/17 21:02 Chief Complaint (Nursing): Dizziness/Lightheaded History Per: Patient Onset/Duration Of Symptoms: Days (1) Current Symptoms Are (Timing): Still Present Current Symptoms: Malaise/Generalized weakness Possible Causative Factor(s): Other (Hyperthyroidism) Fall Associated With With Symptoms: No Severity: Moderate Additional History Per: Prior Records - Symptoms Of CVA Recent Head Trauma: No Past Medical History Reviewed: Historical Data, Nursing Documentation, Vital Signs Vital Signs: Last Vital Signs Temp 97.7 F 10/24/17 20:53 Pulse 86 10/24/17 20:53 Resp 14 10/24/17 20:53 BP 163/84 H 10/24/17 20:53 Pulse Ox 99 10/24/17 20:53 - Medical History PMH: HTN, Hyperthyroidism Surgical History: Appendectomy Family History: States: Unknown Family Hx - Social History Hx Alcohol Use: Yes Hx Substance Use: Yes - Immunization History Hx Tetanus Toxoid Vaccination: Yes Hx Influenza Vaccination: Yes Hx Pneumococcal Vaccination: No Review Of Systems Except As Marked, All Systems Reviewed And Found Negative. Constitutional: Positive for: Weakness, Malaise. Negative for: Fever ENT: Positive for: Other (Chronically enlarged tonsils) Cardiovascular: Negative for: Chest Pain Respiratory: Positive for: Cough. Negative for: Shortness of Breath Gastrointestinal: Negative for: Vomiting, Abdominal Pain, Diarrhea Genitourinary: Negative for: Dysuria Musculoskeletal: Negative for: Neck Pain, Back Pain Skin: Negative for: Rash Neurological: Negative for: Weakness, Numbness, Seizures, Altered Mental Status Physical Exam - Physical Exam Appears: Non-toxic, No Acute Distress Skin: Normal Color, Warm, Dry, No Rash Head: Atraumatic, Normacephalic Eye(s): bilateral: Normal Inspection, PERRL, EOMI Oral Mucosa: Moist, No Drooling, No Trismus Throat: No Exudate, No Drooling, No Mass, Other (Symmetrically enlarged tonsils) Neck: Normal ROM, Supple Lymphatic: No Adenopathy Cardiovascular: Rhythm Regular Respiratory: Normal Breath Sounds, No Accessory Muscle Use Gastrointestinal/Abdominal: Soft, No Tenderness Back: No CVA Tenderness Extremity: Normal ROM, No Calf Tenderness Neurological/Psych: Oriented x3, Normal Speech, Normal Cognition, Normal Motor, Normal Sensation ED Course And Treatment - Laboratory Results Result Diagrams: 10/24/17 21:30 10/24/17 21:30 Interpretation Of Abnormal: Mildly abnormal LFTs. Elevated Free T4. ECG: Interpreted By Me, Viewed By Me ECG Rhythm: Sinus Rhythm ECG Interpretation: No Acute Changes Rate From EC O2 Sat by Pulse Oximetry: 99 Pulse Ox Interpretation: Normal - Radiology CXR: Interpreted by Me, Viewed By Me CXR Interpretation: Yes: No Acute Disease Progress Note: Pt feels much better and wants to go home. He was given a copy of his labs to take to his primary doctor. Pt states that he currently takes Methimazole 10mg daily. I instructed him to increase his dose to 10mg BID until he follows up with his PMD. Reassessment Condition: Improved Progress - Interventions Interventions:: Observation, Intravenous fluid - Data Reviewed Data Reviewed: Lab, Diagnostic imaging, EKG, Old records - Patient Status Patient status: Mostly improved - Continuity of Care Discussed patient case with:: Patient, Family-HIPPA compliant, ED Nurse - Patient Plan Patient Plan: Discharge, F/U with PCP Disposition Counseled Patient/Family Regarding: Studies Performed, Diagnosis, Need For Followup - Disposition Referrals: Sandra Narvaez MD [Medical Doctor] - Disposition: HOME/ ROUTINE Disposition Time: 23:01 Condition: IMPROVED Additional Instructions: Drink plenty of fluids. Increase your Methimazole to 10mg twice a day. Follow up with your doctor within 1 week for further evaluation and treatment. Return to the ER if you develop fever, abdominal pain, vomiting, palpitations, worsening of symptoms or if you have any other concerns. Instructions: Hyperthyroidism (Overactive Thyroid) (DC) Forms: [employer] ([employer] ([place]) - Clinical Impression Clinical Impression: Malaise and fatigue, Hyperthyroidism
[2017-10-24 23:03] VITALS: BP 166/65; PULSE 76; RESP 18
--- NOTE | 2017-10-25 11:17 | RAD ---
PROCEDURE: CHEST RADIOGRAPH, 1 VIEW HISTORY: Cough COMPARISON: None available. FINDINGS: LUNGS: Clear. PLEURA: No pneumothorax or pleural fluid seen. CARDIOVASCULAR: Heart appears borderline enlarged OSSEOUS STRUCTURES: No significant abnormalities. VISUALIZED UPPER ABDOMEN: Normal. OTHER FINDINGS: None. IMPRESSION: No active disease.
--- NOTE | 2017-10-27 16:26 | CARD ---
APPROVED REPORT EKG Measurement Heart [id number] [id number] [id number] <Conclusion> Normal sinus rhythm Normal ECG
== END 2017-10-24 23:12 | disposition home or self-care (01) ==
LOC: C.ER 20:39
DX: E05.90 Thyrotoxicosis, unspecified without thyrotoxic crisis or storm (principal); R53.81 Other malaise; R53.83 Other fatigue; I10 Essential (primary) hypertension
CPT/HCPCS: 71045; 80053; 83735; 84439; 84443; 84484; 85025; 99285; J7120

== ENCOUNTER 2017-11-02 21:29 | Emergency (ER) | payer MEDICAID ==
[2017-11-02 21:39] VITALS: BP 150/84; PULSE 92; RESP 16; TEMP 98; O2SAT 99
[2017-11-02] MEDS ORDERED: MethylPREDNISolone 40 mg Vial IVP STA (22:28)
--- NOTE | 2017-11-02 22:28 | C.PDOC ---
History Of Present Illness 41 y/o male with multiple episodes of strep throat, seen in ed several times for same. c/o sore throat, hoarse voice, and cough with yellow sputum, sometimes blood streaked, x 2 days. no fever or chills. pt c/o back pain when coughing and also c/o burning sensation in throat. pt has hoarse voice, tolerates secretions. pt old charts reviewed,. has had neck ct to eval for abscess with neg results. Time Seen by Provider: 11/02/17 21:44 Chief Complaint (Nursing): ENT Problem History Per: Patient History/Exam Limitations: None Onset/Duration Of Symptoms: Days (2) Current Symptoms Are (Timing): Still Present Quality (Mouth/Throat): Tenderness, Swelling, Redness Symptoms Have Been: Continuous Severity: Moderate Past Medical History Reviewed: Historical Data, Nursing Documentation, Vital Signs Vital Signs: Last Vital Signs Temp 98 F 11/02/17 21:37 Pulse 92 H 11/02/17 21:37 Resp 16 11/02/17 21:37 BP 150/84 11/02/17 21:37 Pulse Ox 99 11/03/17 01:10 - Medical History PMH: HTN, Hyperthyroidism Denies: Chronic Kidney Disease Surgical History: Appendectomy Family History: States: Unknown Family Hx - Social History Hx Alcohol Use: Yes Hx Substance Use: Yes - Immunization History Hx Tetanus Toxoid Vaccination: Yes Hx Influenza Vaccination: Yes Hx Pneumococcal Vaccination: No Review Of Systems Constitutional: Negative for: Fever, Chills ENT: Positive for: Throat Pain, Throat Swelling. Negative for: Ear Pain Cardiovascular: Negative for: Chest Pain, Palpitations Respiratory: Positive for: Cough, Pleuritic Pain, Sputum. Negative for: Shortness of Breath, Hemoptysis Gastrointestinal: Negative for: Abdominal Pain Skin: Negative for: Rash Neurological: Negative for: Weakness, Numbness Physical Exam - Physical Exam Appears: Non-toxic, No Acute Distress Skin: Warm, Dry Head: Atraumatic, Normacephalic Eye(s): bilateral: Normal Inspection Ear(s): Bilateral: Normal Nose: No Discharge Oral Mucosa: Moist Tongue: Normal Appearing Lips: Normal Appearing Throat: Erythema, Exudate, No Drooling, Other (kissing tonsils, scant exudate, uvula midline) Neck: Supple Lymphatic: Adenopathy (bilateral tender submandibular adenopathy) Chest: No Tenderness Cardiovascular: Rhythm Regular, No Murmur Respiratory: No Decreased Breath Sounds, No Accessory Muscle Use, No Rales, No Rhonchi, No Stridor, No Wheezing Gastrointestinal/Abdominal: Soft, No Tenderness Extremity: Normal ROM, No Tenderness, No Pedal Edema Neurological/Psych: Oriented x3, Normal Speech, Normal Cognition, Normal Motor, Normal Sensation ED Course And Treatment - Laboratory Results Result Diagrams: 11/02/17 22:43 11/02/17 22:43 O2 Sat by Pulse Oximetry: 99 Medical Decision Making Medical Decision Making: pt with bilateral enlarged tonsils and hoarse voice, cough with yellow sputum, no fever. wbc normal. scant exudate on tonsils with +bilateral submandibular adenopathy, ? infiltrate on xray. will d/c with zpak and steroid and pmd and ent f/u in next 1-2 days. pt and so understand and agree to plan. re-eval of tonsils after solumedrol- decreased swelling, tonsils no longer touching. pt toleraerating po fluids fine. d/c home,. Disposition Counseled Patient/Family Regarding: Studies Performed, Diagnosis, Need For Followup, Rx Given - Disposition Referrals: Rahgu Patel MD [Staff Provider] - Disposition: HOME/ ROUTINE Disposition Time: 00:11 Condition: IMPROVED Additional Instructions: Please take rest of zithromax and steroids as prescribed. Tylenol or Motrin for pain. Please follow up with Dr Patel (ear/nose throat doctor) as soon as possible as well with your doctor [facility]. Return to ER for any difficutly breathing or swallowing or any other concerns. Prescriptions: Azithromycin [Zithromax] 500 mg PO DAILY #4 tablet predniSONE [predniSONE Tab] 2 tab PO DAILY #8 tab Instructions: Acute Bronchitis, Adult (DC), Sore Throat, Adult (DC) Forms: [employer] (Greenlandic) - Clinical Impression Clinical Impression: Tonsillitis, Bronchitis
[2017-11-02 22:46] LABS: BASO # 0.1 K/uL (0.0-0.2); EOS # 0.2 K/uL (0.0-0.7); EOS % 2.2 % (0.0-4.0); HEMOGLOBIN 12.9 g/dL (12.0-18.0); LYMPH # 3.2 K/uL (1.0-4.3); LYMPH % 36.1 % (20.0-40.0); MEAN CELL VOLUME 78.1 fL (80.0-94.0); MEAN CORPUSCULAR HEMOGLOBIN 26.4 pg (27.0-31.0); MEAN CORPUSCULAR HGB CONC 33.8 g/dL (33.0-37.0); MEAN PLATELET VOLUME 8.7 fL (7.2-11.7); MONO # 0.9 K/uL (0.0-0.8); MONO % 9.7 % (0.0-10.0); NEUT # 4.5 K/uL (1.8-7.0); NRBC % 0.1 % (0.0-2.0); RBC 4.9 Mil/uL (4.40-5.90); RED CELL DISTRIBUTION WIDTH 14.2 % (11.5-14.5); WHITE BLOOD COUNT 8.9 K/uL (4.8-10.8)
[2017-11-02 23:01] LABS: ALB/GLOB RATIO 0.9 (1.0-2.1); ALBUMIN 3.4 g/dL (3.5-5.0); ALT/SGPT 74 U/L (21-72); AST/SGOT 65 U/L (17-59); BLOOD UREA NITROGEN 14 mg/dL (9-20); CALCIUM 9.3 mg/dl (8.6-10.4); GFR AFRICAN-AMERICAN > 60; GFR NON-AFRICAN AMERICAN > 60
[2017-11-02] MEDS ORDERED: Acetaminophen 160 mg/5 ml UD PO ONE (23:44)
[2017-11-02] MEDS ORDERED: Acetaminophen 650mg/20.3ml solution UD ONE (23:52)
--- NOTE | 2017-11-03 08:29 | RAD ---
HISTORY: cough anf bilateral back pain COMPARISON: 10/24/2017 TECHNIQUE: Chest PA and lateral FINDINGS: LUNGS: No active pulmonary disease. PLEURA: No significant pleural effusion identified. No pneumothorax apparent. CARDIOVASCULAR: Normal. OSSEOUS STRUCTURES: No significant abnormalities. VISUALIZED UPPER ABDOMEN: Normal. OTHER FINDINGS: None. IMPRESSION: No active disease.
== END 2017-11-03 00:22 | disposition home or self-care (01) ==
LOC: C.ER 21:29
DX: J03.90 Acute tonsillitis, unspecified (principal); J40 Bronchitis, not specified as acute or chronic
CPT/HCPCS: 71046; 80053; 85025; 87070; 87430; 96374; 99283; J2920

== ENCOUNTER 2018-04-19 00:59 | Emergency (ER) | payer MEDICAID ==
[2018-04-19 01:11] VITALS: RESP 14; TEMP 98.8
--- NOTE | 2018-04-19 01:40 | C.PDOC ---
History Of Present Illness 42 year old male presents to the emergency department with complaints of foreign body to the left ear status-post cleaning ear with a Q-tip. Patient states that he felt like applicator tip got stuck in his ear, otherwise he has no other complaints. Time Seen by Provider: 04/19/18 01:27 Chief Complaint (Nursing): Foreign Body History Per: Patient History/Exam Limitations: None Onset/Duration Of Symptoms: Hrs Current Symptoms Are (Timing): Still Present Quality (Ear): Foreign Body Past Medical History Reviewed: Historical Data, Nursing Documentation, Vital Signs Vital Signs: Last Vital Signs Temp 98.8 F 04/19/18 01:08 Pulse 80 04/19/18 01:08 Resp 14 04/19/18 01:08 BP 160/70 H 04/19/18 01:08 Pulse Ox 97 04/19/18 01:08 - Medical History PMH: HTN, Hyperthyroidism Denies: Chronic Kidney Disease Surgical History: Appendectomy Family History: States: Unknown Family Hx - Social History Hx Alcohol Use: Yes Hx Substance Use: Yes - Immunization History Hx Tetanus Toxoid Vaccination: Yes Hx Influenza Vaccination: Yes Hx Pneumococcal Vaccination: No Review Of Systems Except As Marked, All Systems Reviewed And Found Negative. Constitutional: Negative for: Fever, Chills ENT: Positive for: Other (foreign body present in ear) Physical Exam - Physical Exam Appears: Non-toxic, No Acute Distress Skin: Warm, Dry Head: Atraumatic, Normacephalic Eye(s): bilateral: Normal Inspection, PERRL, EOMI Ear(s): Left: Other (foreign body visualized in left ear canal) Nose: Normal Oral Mucosa: Moist Neck: Normal, Supple Chest: Symmetrical, No Tenderness Neurological/Psych: Oriented x3, Normal Speech, Normal Cognition ED Course And Treatment O2 Sat by Pulse Oximetry: 97 (RA) Pulse Ox Interpretation: Normal Progress Note: Foreign body removed from left ear using alligator forceps. After removal, left ear canal and ear drum appear normal. 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 - Scribe Statement The provider has reviewed the documentation as recorded by the Scribe (Jackson Baig) All medical record entries made by the Scribe were at my direction and personally dictated by me. I have reviewed the chart and agree that the record accurately reflects my personal performance of the history, physical exam, medical decision making, and the department course for this patient. I have also personally directed, reviewed, and agree with the discharge instructions and disposition.
[2018-04-19 01:46] VITALS: BP 157/75; PULSE 70
[2018-04-19 02:54] VITALS: O2SAT 97
== END 2018-04-19 01:45 | disposition home or self-care (01) ==
LOC: C.ER 00:59
DX: T16.2XXA Foreign body in left ear, initial encounter (principal); X58.XXXA Exposure to other specified factors, initial encounter; Y93.E8 Activity, other personal hygiene; I10 Essential (primary) hypertension; E05.90 Thyrotoxicosis, unspecified without thyrotoxic crisis or storm

== ENCOUNTER 2018-04-30 22:53 | Emergency (ER) | payer MEDICAID ==
[2018-04-30 23:19] VITALS: BP 172/81; PULSE 77; RESP 18; TEMP 98.3; O2SAT 96
--- NOTE | 2018-04-30 23:41 | C.PDOC ---
History Of Present Illness 42 year old male presents to the ER after getting a piece of cotton stuck in his left ear from a q-tip while trying to clean his ear. Denies other complaints at this time. Time Seen by Provider: 04/30/18 23:19 Chief Complaint (Nursing): Foreign Body History Per: Patient History/Exam Limitations: None Onset/Duration Of Symptoms: Hrs Current Symptoms Are (Timing): Still Present Quality (Ear): Foreign Body (Cotton) Past Medical History Reviewed: Historical Data, Nursing Documentation, Vital Signs Vital Signs: Last Vital Signs Temp 98.3 F 04/30/18 23:17 Pulse 77 04/30/18 23:17 Resp 18 04/30/18 23:17 BP 172/81 H 04/30/18 23:17 Pulse Ox 96 04/30/18 23:17 - Medical History PMH: HTN, Hyperthyroidism Denies: Chronic Kidney Disease Surgical History: Appendectomy Family History: States: Unknown Family Hx - Social History Hx Alcohol Use: Yes Hx Substance Use: Yes - Immunization History Hx Tetanus Toxoid Vaccination: Yes Hx Influenza Vaccination: Yes Hx Pneumococcal Vaccination: No Review Of Systems ENT: Positive for: Other (Cotton in left ear). Negative for: Ear Pain, Ear Discharge Physical Exam - Physical Exam Appears: Non-toxic Skin: Normal Color, Warm, Dry Head: Atraumatic, Normacephalic Eye(s): bilateral: Normal Inspection Ear(s): Left: Other (Piece of cotton visualized), Right: Normal Neurological/Psych: Oriented x3, Normal Speech ED Course And Treatment O2 Sat by Pulse Oximetry: 96 (Room air) Pulse Ox Interpretation: Normal Progress Note: Foreign body removed from left ear using alligator forceps, patient tolerated procedure well, he is resting comfortably in no acute distress, vitals are stable, will discharge home with instructions to follow up with PMD. Disposition Counseled Patient/Family Regarding: Diagnosis, Need For Followup - Disposition Referrals: [facility] at [facility] [Outside] Disposition: HOME/ ROUTINE Disposition Time: 23:39 Condition: STABLE Additional Instructions: Please follwo up with PMD Avoid Qtip in ear Return to ER if worse Instructions: Removing Objects Stuck in the Ear Forms: [employer] (Mohawk) - Clinical Impression Clinical Impression: Foreign body of ear, left - PA / INSURANCE SALESPERSON / Resident Statement MD/DO has reviewed & agrees with the documentation as recorded. - Scribe Statement The provider has reviewed the documentation as recorded by the Scribe Omar Conway All medical record entries made by the Scribe were at my direction and personally dictated by me. I have reviewed the chart and agree that the record accurately reflects my personal performance of the history, physical exam, medical decision making, and the department course for this patient. I have also personally directed, reviewed, and agree with the discharge instructions and disposition.
== END 2018-04-30 23:43 | disposition home or self-care (01) ==
LOC: C.ER 22:53
DX: T16.2XXA Foreign body in left ear, initial encounter (principal); Y93.E8 Activity, other personal hygiene; I10 Essential (primary) hypertension; E05.90 Thyrotoxicosis, unspecified without thyrotoxic crisis or storm